=== PATIENT | female | born 1955 | race Two or more races ===

== ENCOUNTER 2020-06-07 16:58 | Emergency (ER) | payer OTHER ==
[~2020-06-07] VITALS: Ht 160 cm; Wt 93.0 kg
[2020-06-07] MEDS ORDERED: ULTRAM50 MG PO (17:15)
[2020-06-07] MEDS ORDERED: TOPROL XL25 M1 PO (17:15)
== END 2020-06-07 19:15 | disposition home or self-care (01) ==
LOC: ER 16:58
DX: N20.0 Calculus of kidney (principal); R10.32 Left lower quadrant pain

== ENCOUNTER 2023-01-17 22:16 | Emergency (ER) | payer OTHER ==
[~2023-01-17] VITALS: Ht 160 cm; Wt 93.0 kg
[~2023-01-17 22:16] MED LIST: TOPROL XL25 M1 PO; ULTRAM50 MG PO
[2023-01-17 23:45] LABS: PH,URINE 6.5 (5.0-8.0); URINE APPEARANCE Clear; URINE BACTERIA 7.5 uL (0.0-1933); URINE BILIRRUBIN Negative (NEGATIVE); URINE BLOOD Negative; URINE COLOR Yellow; URINE GLUCOSE Negative (NEGATIVE); URINE LEUKOCYTE Negative; URINE NITRATE Negative; URINE PROTEIN Negative (NEGATIVE); URINE UROBILINOGEN 0.2 E.U./dl; URINE WBC 3.2 uL (0.0-23.2)
[2023-01-17 23:46] LABS: URINE EPITHELIAL CELLS 0.9 uL (0.0-38.8)
[2023-01-18 00:35] LABS: HEMATOCRIT 43.2 % (36.0-45.00); HEMOGLOBIN 14.4 g/dL (12.0-15.00); MEAN CELL VOLUME 84.8 fL (80.00-100.00); MEAN CORPUSCULAR HEMOGLOBIN 28.3 pg (27.00-32.0); MEAN CORPUSCULAR HGB CONC 33.4 g/dl (32.0-36.0); PLATELET COUNT 289 K/uL (150-450); RED BLOOD COUNT 5.09 M/uL (4.00-6.00); RED CELL DISTRIBUTION WIDTH 14.4 % (11.5-14.5)
[2023-01-18 00:59] LABS: CALCIUM 8.8 mg/dL (8.5-10.1); CREATININE SERUM 0.72 mg/dL (0.55-1.02); GFR 81.29; POTASSIUM 3.66 mEq/L (3.5-5.1)
== END 2023-01-18 06:53 ==
LOC: ER 22:16
PROVIDERS: Emergency Medicine
DX: I10 Essential (primary) hypertension (principal)

== ENCOUNTER 2023-01-20 02:57 | Emergency (ER) | payer OTHER ==
[~2023-01-20] VITALS: Ht 157.5 cm; Wt 72.6 kg
[2023-01-20 04:04] LABS: HEMATOCRIT 41.9 % (36.0-45.00); HEMOGLOBIN 14.4 g/dL (12.0-15.00); MEAN CELL VOLUME 84.9 fL (80.00-100.00); MEAN CORPUSCULAR HEMOGLOBIN 29.1 pg (27.00-32.0); MEAN CORPUSCULAR HGB CONC 34.3 g/dl (32.0-36.0); PLATELET COUNT 285 K/uL (150-450); RED BLOOD COUNT 4.94 M/uL (4.00-6.00); RED CELL DISTRIBUTION WIDTH 14.2 % (11.5-14.5)
[2023-01-20 04:31] LABS: INR 1.02; PARTIAL THROMBOPLASTIN TIME 31.9 SECONDS (22.0-34.0); PROTHROMBIN TIME 10.7 SECONDS (9.0-11.5)
[2023-01-20 04:34] LABS: PH,URINE 6.5 (5.0-8.0); URINE APPEARANCE Clear; URINE BILIRRUBIN Negative (NEGATIVE); URINE BLOOD Negative; URINE COLOR Yellow; URINE GLUCOSE Negative (NEGATIVE); URINE LEUKOCYTE Negative; URINE NITRATE Negative; URINE PROTEIN Negative (NEGATIVE); URINE UROBILINOGEN 0.2 E.U./dl
[2023-01-20 04:37] LABS: ALBUMIN 3.6 gm/dL (3.4-5.0); BILIRUBIN TOTAL 0.5 mg/dL (0.3-1.2); CALCIUM 8.6 mg/dL (8.5-10.1); CREATININE SERUM 0.64 mg/dL (0.55-1.02); GFR 93.13; GLOBULINA 3.9 G/DL (2.4-3.5); POTASSIUM 3.88 mEq/L (3.5-5.1); TOTAL PROTEIN 7.5 gm/dL (6.4-8.2)
[2023-01-20 04:38] LABS: URINE BACTERIA 21.3 uL (0.0-1933); URINE EPITHELIAL CELLS 2.4 uL (0.0-38.8); URINE RBC 7.1 uL (0.0-20.8); URINE WBC 6.1 uL (0.0-23.2)
== END 2023-01-20 11:03 | disposition home or self-care (01) ==
LOC: ER 02:57
PROVIDERS: General Practice
DX: R11.0 Nausea (principal); I10 Essential (primary) hypertension
CPT/HCPCS: 36415; 71045; 93005; 96365; 99284; J2405; J3490